=== PATIENT | female | born 1990 | race African-American/Black ===

== ENCOUNTER 2021-11-04 10:10 | Inpatient (IN) ==
[2021-11-04] MEDS ORDERED: CARBOPROST TROMETHAMINE 250 MCG/ML AMP IM PRN (11:23)
[2021-11-04] MEDS ORDERED: METHYLERGONOVINE 0.2 MG/1 ML AMP IM PRN (11:23)
[2021-11-04] MEDS ORDERED: OXYTOCIN/LR 20 UNIT/1,000 ML BAG IV ONE (11:23)
[2021-11-04] MEDS ORDERED: BUTORPHANOL 2 MG/ML VIAL IV PRN (11:23)
[2021-11-04] MEDS ORDERED: TRANEXAMIC ACID 1,000 MG in SODIUM CHLORIDE 0.9% 100 ML IV PRN (11:23)
[2021-11-04] MEDS ORDERED: miSOPROStoL 200 MCG TABLET RECTAL PRN (11:23)
[2021-11-04] MEDS ORDERED: ONDANSETRON 4 MG/2 ML VIAL IV PRN (11:23)
[2021-11-04] MEDS ORDERED: MEPERIDINE 50 MG/1 ML VIAL IV PRN (11:23)
[2021-11-04 12:18] LABS: Basophils # 0.1 10*3/uL (0.0-0.2); Basophils % 0.9 % (0.0-0.8); Eosinophils # 0.2 10*3/uL (0.0-0.87); Eosinophils % 2.1 % (0.00-10.9); Hematocrit 36.1 VOL% (35.7-47.0); Hemoglobin 11.9 GM/DL (12.0-16.0); Immature Granulocytes % 0.9 %; Immature Granulocytes Absolute 0.07 #; Lymphocytes # 1.6 10*3/uL (1.4-4.0); Lymphocytes % 19.4 % (21.3-54.2); Mean Corpuscular Volume 93.3 FL (87-102); Mean Platelet Volume 9.6 FL (9.6-12.0); Monocytes # 0.6 10*3/uL (0.11-0.8); Monocytes % 7.1 % (1.7-12.7); Neutrophils % 69.6 % (38.7-73.9); Platelet Count 263 T/CUMM (130-400); Red Blood Count 3.87 MC/CUMM (3.8-5.5); Red Cell Distribution Width 13.8 % (9.3-17.3)
[2021-11-04 12:40] LABS: Alanine Aminotransferase 20 U/L (13-56); Albumin 2.6 G/DL (3.4-5.0); Alkaline Phosphatase 185 U/L (45-117); Aspartate Amino Transferase 18 U/L (0-37); Bilirubin,Total < 0.39 MG/DL (0.20-1.00); Blood Urea Nitrogen 4 MG/DL (7-18); Calcium 9.5 MG/DL (8.5-10.1); Carbon Dioxide 22 MMOL/L (21-32); Chloride 109 MMOL/L (98-107); Estimated Glom Filtration Rate 143 ML/MIN; Glucose 74 MG/DL (74-106); Osmolality,Calculated 272.5 MOS/KG (273-304); Potassium 3.7 MMOL/L (3.5-5.1); Sodium 139 MMOL/L (136-145); Total Protein 6.4 G/DL (6.4-8.2)
[2021-11-04] MEDS ORDERED: CITRIC ACID/SODIUM CITRATE 30 ML UDCUP PO ONE (18:59)
[2021-11-04] MEDS ORDERED: hydrOXYzine HCL 25 MG/1 ML VIAL IM PRN (18:59)
[2021-11-04] MEDS ORDERED: diphenhydrAMINE 50 MG/1 ML VIAL IV PRN (18:59)
[2021-11-04] MEDS ORDERED: ePHEDrine 50 MG/ML VIAL IV PRN (18:59)
[2021-11-04] MEDS ORDERED: NALOXONE 0.4 MG/ML VIAL IV PRN (18:59)
[2021-11-04] MEDS ORDERED: PROMETHAZINE 25 MG/1 ML VIAL IM PRN (18:59)
[2021-11-04] MEDS ORDERED: FAMOTIDINE 20 MG/2 ML VIAL IV ONE (18:59)
[2021-11-04] MEDS: LACTATED RINGERS 1,000 ML IV SCH ×2 (19:25→20:51)
[2021-11-04] MEDS: fentaNYL 2 MCG/ROPIV 0.2% EPID 100 ML EPIDURAL SCH (20:06)
[2021-11-04] MEDS ORDERED: OXYTOCIN/LR 20 UNIT/1,000 ML BAG IV SCH (21:00)
[2021-11-04 22:08] LABS: Bilirubin,Urine Negative (Negative); Blood, Urine Trace mg/dL (Negative); Glucose,Urine (UA) Negative (Negative); Ketones,Urine 80 mg/dL (Negative); Nitrite,Urine Negative (Negative); Protein,Urine Negative (Negative); Urine Appearance Clear (Clear); Urine Color Yellow (Yellow); Urine Specific Gravity 1.025 (1.001-1.035); Urine Urobilinogen 0.2 eU/dL (<2.0); Urine pH 6.5 (4.5-8.0)
[2021-11-04 22:14] LABS: Mucus,Urine Few /LPF (Occasional); RBC,Urine 2 /HPF (0-4); Squamous Epithelial Cell,Urine Occasional /HPF (0-10)
[2021-11-05] MEDS ORDERED: miSOPROStoL 200 MCG TABLET ONE (01:36)
[2021-11-05] MEDS ORDERED: TRANEXAMIC ACID 1,000 MG/10 ML VIAL ONE (01:36)
[2021-11-05] MEDS ORDERED: OXYTOCIN/LR 20 UNIT/1,000 ML BAG IV ONE ×2 (01:36→08:30)
[2021-11-05] MEDS ORDERED: SODIUM CHLORIDE 0.9% 0 ML IV ONE (01:36)
[2021-11-05] MEDS ORDERED: METHYLERGONOVINE 0.2 MG/1 ML AMP ONE (01:37)
[2021-11-05] MEDS ORDERED: CARBOPROST TROMETHAMINE 250 MCG/ML AMP IM ONE (01:37)
[2021-11-05] MEDS: LACTATED RINGERS 1,000 ML IV SCH (04:32)
[2021-11-05] MEDS: fentaNYL 2 MCG/ROPIV 0.2% EPID 100 ML EPIDURAL SCH (04:34)
[2021-11-05 08:30] LABS: Cord Venous Blood HCO3 18.7 MMOL/L; Cord Venous Blood PCO2 48.2 MMHG; Cord Venous Blood PO2 34.4
[2021-11-05] MEDS ORDERED: BENZOCAINE 20%/MENTHOL 0.5% SPRAY 56 GM CAN TOP PRN (08:30)
[2021-11-05] MEDS ORDERED: DIPH/TET/ACEL PERT BOOSTER VACCINE 0.5 ML VIAL IM ONE (08:30)
[2021-11-05] MEDS ORDERED: WITCH HAZEL PADS 100/JAR TOP PRN (08:30)
[2021-11-05] MEDS ORDERED: RHO(D) IMMUNE GLOBULIN 300 MCG SYRINGE IM ONE (08:30)
[2021-11-05] MEDS ORDERED: ACETAMINOPHEN 325 MG TABLET PO PRN (08:30)
[2021-11-05] MEDS ORDERED: HYDROCORTISONE 2.5% RECTAL CREAM 30 GM TUBE TOP PRN (08:30)
[2021-11-05] MEDS ORDERED: ONDANSETRON 4 MG/2 ML VIAL IV PRN (08:30)
[2021-11-05] MEDS ORDERED: BISACODYL 10 MG SUPP RECTAL PRN (08:30)
[2021-11-05] MEDS ORDERED: LANOLIN 50% CREAM 0.3 OZ TUBE TOP PRN (08:30)
[2021-11-05] MEDS ORDERED: MEASLES/MUMPS/RUBELLA VACCINE 0.5 ML VIAL SUBCUT ONE (08:30)
[2021-11-05] MEDS ORDERED: ACETAMINOPHEN/CODEINE 300-30 MG TABLET PO PRN ×2 (08:32)
[2021-11-05] MEDS: IBUPROFEN 800 MG TABLET PO PRN ×2 (10:55→20:25)
[2021-11-05] MEDS: FERROUS SULFATE 325 MG TABLET PO SCH (20:25)
[2021-11-05] MEDS: DOCUSATE SODIUM 100 MG CAPSULE PO SCH (20:25)
[2021-11-06 06:51] LABS: Basophils # 0.1 10*3/uL (0.0-0.2); Basophils % 0.3 % (0.0-0.8); Eosinophils # 0.3 10*3/uL (0.0-0.87); Hematocrit 31.9 VOL% (35.7-47.0); Hemoglobin 10.5 GM/DL (12.0-16.0); Immature Granulocytes % 0.7 %; Immature Granulocytes Absolute 0.11 #; Lymphocytes # 2.2 10*3/uL (1.4-4.0); Lymphocytes % 14.5 % (21.3-54.2); Mean Corpuscular HGB Conc 32.9 GM/DL (32-36); Mean Corpuscular Volume 93.5 FL (87-102); Mean Platelet Volume 10.5 FL (9.6-12.0); Monocytes % 6.6 % (1.7-12.7); Neutrophils % 75.9 % (38.7-73.9); Platelet Count 214 T/CUMM (130-400); Red Blood Count 3.41 MC/CUMM (3.8-5.5); Red Cell Distribution Width 13.9 % (9.3-17.3); White Blood Count 15.2 T/CUMM (4-12)
[2021-11-06] MEDS: MULTIVITAMIN (PRENATAL) TABLET PO SCH (08:45)
[2021-11-06] MEDS: FERROUS SULFATE 325 MG TABLET PO SCH (08:45)
[2021-11-06] MEDS: DOCUSATE SODIUM 100 MG CAPSULE PO SCH ×2 (08:45→21:01)
[2021-11-07 07:09] VITALS: BP 130/84
[2021-11-07] MEDS: FERROUS SULFATE 325 MG TABLET PO SCH (08:46)
[2021-11-07] MEDS: MULTIVITAMIN (PRENATAL) TABLET PO SCH (08:46)
[2021-11-07] MEDS: DOCUSATE SODIUM 100 MG CAPSULE PO SCH (08:46)
[2021-11-07] MEDS ORDERED: DIPH/TET/ACEL PERT BOOSTER VACCINE 0.5 ML VIAL IM ONE (13:00)
== END 2021-11-07 13:20 | disposition home or self-care (01) | DRG 807 ==
LOC: N.OBOUT 10:10 → N.LD 10:12 → N.OB 11-05 11:02
PROVIDERS: ADMIT Obstetrics & Gynecology; ATTEND Obstetrics & Gynecology